=== PATIENT | female | born 1990 | race Caucasian/White ===

== ENCOUNTER → 2018-08-29 | Outpatient (CLI) | payer BC ==
[~2018-08-29] MED LIST: ASCO1CAP2 PO; CETI10CA PO; None per pt
[2018-08-29 09:29] LABS: BASOPHILS # (AUTO) 0.03 x10^3/uL (0-0.1); BASOPHILS % (AUTO) 0 % (0-1); EOSINOPHILS # (AUTO) 0.28 x10^3/uL (0-0.4); EOSINOPHILS % (AUTO) 3 % (1-7); LYMPHOCYTES # (AUTO) 3.35 x10^3/uL (1-3.4); LYMPHOCYTES % (AUTO) 38 % (22-44); MD NO; MEAN CORPUSCULAR HEMOGLOBIN 29.9 pg (27.0-34.8); MEAN CORPUSCULAR VOLUME 90.7 fL (80-100); MEAN PLATELET VOLUME 7.9 fL (7.4-10.4); MONOCYTES # (AUTO) 0.77 x10^3/uL (0.2-0.8); MONOCYTES % (AUTO) 9 % (2-9); NEUTROPHILS # (AUTO) 4.47 x10^3/uL (1.8-6.8); NEUTROPHILS % (AUTO) 50 % (42-75); PLATELET COUNT 327 x10^3/uL (130-400); RED BLOOD COUNT 5.01 x10^6/uL (3.82-5.3); RED CELL DISTRIBUTION WIDTH 13.1 % (9.6-15.2)
[2018-08-29 09:37] LABS: MICROSCOPIC NOT IND
[2018-08-29 09:42] LABS: CULTURE INDICATED? NO
[2018-08-29 09:54] LABS: ALBUMIN 4.1 g/dL (3.4-5.0); ANION GAP 6 mmol/L (5-15); CHLORIDE 108 mmol/L (98-107)
[2018-08-29 10:00] LABS: ALANINE AMINOTRANSFERASE 30 U/L (12-78); ALKALINE PHOSPHATASE 99 U/L (45-117); BILIRUBIN,TOTAL 0.3 mg/dL (0.2-1.0); CREATININE 0.79 mg/dL (0.55-1.02); TOTAL PROTEIN 7.7 g/dL (6.4-8.2)
== END | disposition home or self-care (01) ==
LOC: MERGE 08:14 → STAR 08:14
PROVIDERS: ATTEND Obstetrics & Gynecology Gynecology
DX: Z30.2 Encounter for sterilization (principal)
CPT/HCPCS: 36415; 80053; 81003; 84703; 85025

== ENCOUNTER 2018-09-02 07:40 | Day surgery (SDC) | payer BC ==
[~2018-09-02] VITALS: Ht 152.4 cm; Wt 70.9 kg
[~2018-09-02 07:40] MED LIST changes: +LIDOCAINE 1%-EPI 1:100K, 50ML ONE
[2018-09-02 08:11] VITALS: BP 108/71
[2018-09-02] MEDS ORDERED: LACTATED RINGERS 1,000 ML IV SCH (08:15)
[2018-09-02 08:29] LABS: HCG UR SG 1.017 (1.003-1.030)
[2018-09-02] MEDS ORDERED: GABAPENTIN 300 MG CAPSULE PO ONE (08:30)
[2018-09-02] MEDS ORDERED: ACETAMINOPHEN 500 MG TABLET PO ONE (08:30)
[2018-09-02] MEDS ORDERED: SCOPOLAMINE PATCH, 1.5MG PATCH.TD72 TD ONE (08:30)
[2018-09-02] MEDS ORDERED: FENTANYL PF 100 MCG/2ML ONE ×2 (09:02→10:16)
[2018-09-02] MEDS ORDERED: MIDAZOLAM 1 MG/ML, 2ML ONE (09:02)
[2018-09-02] MEDS ORDERED: KETOROLAC 30 MG/1 ML ONE (09:59)
[2018-09-02] MEDS ORDERED: DIPHENHYDRAMINE 50 MG/ML, 1ML IVPush PRN (10:00)
[2018-09-02] MEDS ORDERED: PROMETHAZINE 25 MG/ML, 1ML IV PRN (10:00)
[2018-09-02] MEDS ORDERED: HYDROmorphone 2 MG/ML, 1ML IVPush PRN (10:00)
[2018-09-02] MEDS ORDERED: MEPERIDINE/PF 25MG/0.5ML IVPush PRN (10:00)
[2018-09-02] MEDS ORDERED: hydrALAzine 20 MG/ML, 1ML IV PRN (10:00)
[2018-09-02] MEDS ORDERED: LABETALOL 5MG/ML, 20ML IV PRN (10:00)
[2018-09-02] MEDS ORDERED: HALOPERIDOL 5 MG/ML IV PRN ×2 (10:00)
[2018-09-02] MEDS ORDERED: METOPROLOL 1 MG/ML, 5ML IV PRN (10:00)
[2018-09-02] MEDS ORDERED: OXYcodone 5 MG/5 ML ORAL.SOL UDC PO PRN (10:00)
[2018-09-02] MEDS ORDERED: PROCHLORPERAZINE 5 MG/ML, 2ML IV PRN ×2 (10:00)
[2018-09-02] MEDS ORDERED: ONDANSETRON 2MG/ML, 2ML ONE (10:35)
[2018-09-02] MEDS ORDERED: NEOSTIGMINE 1 MG/ML, 10ML ONE (10:35)
[2018-09-02] MEDS ORDERED: DEXAMETHASONE 4 MG/ML, 1ML ONE (10:35)
[2018-09-02] MEDS ORDERED: SUCCINYLCHOLINE 20 MG/ML, 10ML ONE (10:35)
[2018-09-02] MEDS ORDERED: CEFAZOLIN 1,000 MG ONE (10:35)
[2018-09-02] MEDS ORDERED: PROPOFOL 10 MG/ML, 20ML ONE (10:35)
[2018-09-02] MEDS ORDERED: ROCURONIUM 10MG/ML,5ML ONE (10:35)
[2018-09-02] MEDS ORDERED: GLYCOPYRROLATE 0.2MG/1ML, 5ML ONE (10:35)
[2018-09-02] MEDS: FENTANYL PF 100 MCG/2ML IV PRN ×3 (10:56→11:16)
== END 2018-09-02 16:40 | disposition home or self-care (01) ==
LOC: OUT 07:40 → MERGE 15:00 → OUT 16:40
PROVIDERS: ATTEND Obstetrics & Gynecology Gynecology
DX: Z30.2 Encounter for sterilization (principal)
CPT/HCPCS: 58661; 81025; 88302; J0330; J0690; J1100; J1885; J2250; J2405; J2704; J2710; J3010; J7120